=== PATIENT | female | born 1995 | race Caucasian/White ===

== ENCOUNTER 2018-03-31 01:31 | Emergency (ER) | payer BC ==
[2018-03-31] MEDS ORDERED: LIDOCAINE 1% 2 ML VIAL SUBQ ONE (03:31)
[2018-03-31] MEDS ORDERED: cefTRIAXone 250 MG VIAL IM STA (03:31)
[2018-03-31] MEDS ORDERED: AZITHROMYCIN 250 MG TABLET PO STA (03:32)
--- NOTE | 2018-03-31 03:44 | ED Physician Documentation ---
PD HPI FEMALE - Stated complaint Stated Complaint: FEMALE - Chief complaint Chief Complaint: General - History obtained from History obtained from: Patient, Friend - History of Present Illness Timing - onset: How many days ago (4) Timing - duration: Days (4) Timing - details: Gradual onset, Still present Associated symptoms: Other (exposure to std) Contributing factors: Sexually active, Exposed to STD Similar symptoms before: Has not had sx before Recently seen: Not recently seen - Additional information Additional information: 22-year-old female indicates that she has been together with a male having what she thought was consensual monogamous intercourse and she is subsequently discovered that he had been having intercourse with another female and had developed symptoms of dysuria. He indicated to her that he has been tested and treated and indicated to her that she should be tested and treated as well. She is come to the emergency department now for treatment.She denies any specific symptoms. Review of Systems Constitutional: denies: Fever Eyes: denies: Decreased vision Respiratory: denies: Cough GI: denies: Nausea, Vomiting : reports: Vaginal bleeding. denies: Dysuria, Frequency, Discharge Skin: denies: Rash Musculoskeletal: denies: Neck pain, Back pain, Extremity pain PD PAST MEDICAL HISTORY - Past Medical History Past Medical History: No - Past Surgical History Past Surgical History: No - Present Medications Home Medications: Ambulatory Orders Medication Instructions Recorded Confirmed Etonogestrel [Nexplanon] 68 mg SQ 03/31/18 - Allergies Allergies/Adverse Reactions: Allergies Allergy/AdvReac Type Severity Reaction Status Date / Time latex AdvReac Rash Verified 03/31/18 01:52 - Social History Does the pt smoke?: No Smoking Status: Never smoker - Immunizations Immunizations are current?: Yes PD ED PE NORMAL - Vitals Vital signs reviewed: Yes (tachy ) - General General: Alert and oriented X 3, No acute distress, Well developed/nourished - HEENT HEENT: Atraumatic, PERRL, EOMI - Neck Neck: Supple, no meningeal sign - Respiratory Respiratory: No respiratory distress - Female Female : Selling Underwriter present (Alondra), Other (The patient is on her menses, there is minimal cervical friability and there is no significant cervical motion tenderness.) - Derm Derm: Normal color, Warm and dry, No rash - Extremities Extremities: No deformity, No edema Results - Vitals Vitals: Vital Signs - 24 hr 03/31/18 03/31/18 01:48 03:45 Temperature 36.3 C L 36.6 C Heart Rate 118 H 98 Respiratory 18 20 Rate Blood Pressure 139/89 H 126/76 O2 Saturation 100 100 Oxygen O2 Source Room air PD MEDICAL DECISION MAKING - ED course Complexity details: reviewed results, re-evaluated patient, considered differential, d/w patient ED course: 22-year-old female with exposure to STD has no significant findings on physical examination a culture is obtained for GC and chlamydia and she is treated with 250 mg of Rocephin IM and 1 g of azithromycin orally. Departure - Departure Disposition: 01 Home, Self Care Clinical Impression: Exposure to STD Condition: Stable Instructions: ED VD Cervicitis Treated Follow-Up: [facility] [Provider Group] Discharge Date/Time: 03/31/18 03:57
[2018-03-31 03:46] VITALS: BP 126/76
== END 2018-03-31 03:57 | disposition home or self-care (01) ==
LOC: ED 01:31
DX: Z20.2 Contact with and (suspected) exposure to infections with a predominantly sexual mode of transmission (principal)
CPT/HCPCS: 87491; 87591; 96372; 99283; A9270

== ENCOUNTER 2019-04-05 10:19 | Day surgery (SDC) | payer BC ==
[2019-04-05] MEDS ORDERED: KETAMINE 500 MG/10 ML VIAL IVP ONE (10:20)
[2019-04-05] MEDS ORDERED: MIDAZOLAM 2 MG/2 ML VIAL IVP ONE (10:20)
[2019-04-05] MEDS ORDERED: PROPOFOL 200 MG/20 ML VIAL IVP ONE (10:20)
[2019-04-05] MEDS ORDERED: LACTATED RINGERS 1,000 ML IV ONE (10:24)
--- NOTE | 2019-04-05 10:49 | ANESTHESIA ---
Pre-Anesthesia VS, & Labs - Diagnosis imbedded nexplanon implant, right upper arm - Procedure EUA. Removal of nexplanon implant. Height 5 ft Weight (kg) 67.9 kg Body Mass Index 29.2 - Is Patient ?: No Home Medications and Allergies Home Medications: Ambulatory Orders Acetaminophen 325 mg PO Q6H PRN 04/03/19 Ascorbic Acid [Vitamin C] 750 mg PO DAILY 04/03/19 Cholecalciferol (Vitamin D3) [Vitamin D3] 2,500 unit PO DAILY 04/03/19 Ibuprofen [Motrin] 600 mg PO Q6H PRN 04/03/19 Vitamin E 400 unit PO DAILY 04/03/19 Acetaminophen 325 mg PO Q6H PRN 04/03/19 Ascorbic Acid [Vitamin C] 750 mg PO DAILY 04/03/19 Cholecalciferol (Vitamin D3) [Vitamin D3] 2,500 unit PO DAILY 04/03/19 Ibuprofen [Motrin] 600 mg PO Q6H PRN 04/03/19 Vitamin E 400 unit PO DAILY 04/03/19 Allergies/Adverse Reactions: Allergies Allergy/AdvReac Type Severity Reaction Status Date / Time latex AdvReac skin Verified 04/03/19 16:09 dryness Anes History & Medical History - Anesthetic History Anesthesia Complications: reports: No previous complications Family history of Anesthesia Complications: Denies Family history of Malignant Hyperthermia: Denies - Medical History Cardiovascular: reports: None Pulmonary: reports: None Gastrointestinal: reports: None Urinary: reports: None Neuro: reports: None Musculoskeletal: reports: None Endocrine/Autoimmune: reports: None Skin: reports: None Smoking Status: Current every day smoker (marijuana smoke every day. 1ppd x6) Psychosocial: reports: No issues indicated - Surgical History General: Other (remote history of a tumor removal from neck at 6 years of age) Exam Dental: WNL, Other (lower left molar chipped) Mouth Openin Fingerbreadth Neck Mobility: Normal Mallampati classification: I Thyromental Distance: 4-6 cm Respiratory: Lungs clear, Normal breath sounds, No respiratory distress, No accessory muscle use Cardiovascular: Regular rate, Normal S1, Normal S2, No murmurs Abdomen: Normal bowel sounds, Soft, No tenderness, No hepatospenomegaly, No masses Extremities: No clubbing, No cyanosis, No edema, Normal pulses, No tenderness/swelling Neurological: Normal gait, Normal speech, Strength at 5/5 X4 ext, Normal tone, Sensation intact, Cranial nerves 3-12 NL, Reflexes 2+ Mental/Cognitive Status: Alert/Oriented X3, Normal for patient Cognitive Status: Within normal limits Plan Anesthesia Type: MAC Consent for Procedure(s) Verified and Reviewed: Yes Code Status: Attempt Resuscitation ASA classification: 1-Healthy patient Is this case an emergency?: No
[2019-04-05 10:50] LABS: HCG UR QUAL NEGATIVE
[2019-04-05] MEDS ORDERED: BUPIVACAINE 0.25% PF 10 ML VIAL ONE (10:52)
[2019-04-05] MEDS ORDERED: LIDOCAINE 1%-EPI 1:100000 20 ML MDV ONE (10:53)
[2019-04-05] MEDS ORDERED: LIDOCAINE 1%-EPI 1:100000 20 ML MDV SUBQ ONE (11:37)
[2019-04-05] MEDS ORDERED: BUPIVACAINE 0.25% PF 30 ML VIAL SUBQ ONE (11:38)
[2019-04-05] MEDS ORDERED: ONDANSETRON 4 MG/2 ML VIAL IVP PRN (12:04)
[2019-04-05] MEDS ORDERED: oxyCODONE 5 MG TABLET PO PRN (12:04)
--- NOTE | 2019-04-05 12:59 | OPERATIVE REPORT ---
Operative Report - General Procedure Date: 04/05/19 Planned Procedure: Removal of nexplanon contraceptive implant Pre-Op Diagnosis: Malpositioned nexplanon contraceptive device Procedure Performed: Removal of nexplanon contraceptive implant Post Op Diagnosis: Malpositioned nexplanon contraceptive device - Procedure Note Primary Surgeon: Kal Anesthesia Technique: Local, MAC Pathology: None Estimated Blood Loss (mL): 5 Findings: Normal right arm Complications: None - Other Other Information/Narrative: Brought to the OR. SCDs placed. Positioned with right hand over her head. Prepped and draped. Device located with ultrasound. Local injected peripherally circumfrentially around the device. Could barely palpate the proximal end of the device. Area over was incised with a scalpel and explored with a hemostat. Skin incision had to be extended to 2cm in length. Device located and elevated. Capsule incised and the nexplanon was removed intact. Skin closed with a subcuticular 4-0 monocryl and then 2 interrupted sutures of 4-0 monocryl. Steri strips and then a gentle pressure dressing were applied. Tolerated well; no complications.
[2019-04-05 13:18] VITALS: BP 112/69
== END 2019-04-05 10:20 | disposition home or self-care (01) ==
LOC: SDS 10:19
PROVIDERS: ATTEND Obstetrics & Gynecology
PROC: 0JPV0HZ Removal of Contraceptive Device from Upper Extremity Subcutaneous Tissue and Fascia, Open Approach (ICD-10-PCS; principal; 2019-04-05 12:15)
DX: T85.628A Displacement of other specified internal prosthetic devices, implants and grafts, initial encounter (principal); T85.848A Pain due to other internal prosthetic devices, implants and grafts, initial encounter; Y84.8 Other medical procedures as the cause of abnormal reaction of the patient, or of later complication, without mention of misadventure at the time of the procedure; F17.210 Nicotine dependence, cigarettes, uncomplicated
CPT/HCPCS: 11982; 81025; A9270; J7120

== ENCOUNTER 2019-05-19 15:50 | Outpatient (CLI) | payer OTHER ==
[2019-05-19 16:28] LABS: CHOL/HDL RATIO 2.6 (<4.4); CHOLESTEROL 182 mg/dL; HDL CHOLESTEROL 71 mg/dL; LDL CHOLESTEROL,CALCULATED 98 mg/dL; LDL/HDL RATIO 1.4 (<4.4); VLDL CHOLESTEROL 13 mg/dL
[2019-05-20 12:29] LABS: HIV AG/AB 4TH GEN NON-REACTIVE (NON-REACTIVE)
== END 2019-05-19 15:51 | disposition home or self-care (01) ==
LOC: LAB 15:50
PROVIDERS: ATTEND Obstetrics & Gynecology
DX: Z13.21 Encounter for screening for nutritional disorder (principal); Z11.3 Encounter for screening for infections with a predominantly sexual mode of transmission; Z13.220 Encounter for screening for lipoid disorders; Z12.4 Encounter for screening for malignant neoplasm of cervix
CPT/HCPCS: 36415; 80061; 81599; 82306; 83721; 86592; 87350; 87389

== ENCOUNTER 2019-07-09 10:55 | Emergency (ER) | payer OTHER ==
[2019-07-09 11:47] LABS: RAPID STREP SCREEN Negative (Negative)
[2019-07-09] MEDS ORDERED: IPRATROPIUM/ALBUTEROL 3 ML NEB INH STA (12:24)
[2019-07-09] MEDS ORDERED: DOXYCYCLINE 100 MG TABLET PO STA (12:24)
--- NOTE | 2019-07-09 12:33 | ED Physician Documentation ---
PD HPI URI - Stated complaint Stated Complaint: THROAT PX - Chief complaint Chief Complaint: Heent - History obtained from History obtained from: Patient - History of Present Illness Timing - onset: How many days ago (3) Timing duration: Days (3) Timing details: Gradual onset Pain level max: 4 Pain level now: 3 Associated symptoms: Fever (101), Ear pain (Bilateral), Nasal congestion, Rhinorrhea, Sore throat, Dry cough, Dyspnea (Wheezing) Contributing factors: Sick contact (Works as a [employer]). No: Travel, Immunocompromised, Unimmunized Improves by: Rest, Medication (Motrin, Tylenol) Worsened by: Activity Recently seen: Not recently seen Review of Systems Ten Systems: 10 systems reviewed and negative Constitutional: reports: Fever, Chills Eyes: reports: Reviewed and negative Ears: reports: Reviewed and negative Nose: reports: Rhinorrhea / runny nose, Congestion Throat: reports: Reviewed and negative Cardiac: reports: Reviewed and negative Respiratory: reports: Reviewed and negative GI: denies: Nausea, Vomiting, Diarrhea : denies: Now EGA Skin: denies: Rash Musculoskeletal: denies: Neck pain, Back pain Neurologic: denies: Headache Psychiatric: reports: Reviewed and negative Endocrine: reports: Reviewed and negative Immunocompromised: reports: Reviewed and negative PD PAST MEDICAL HISTORY - Past Medical History Past Medical History: Yes Cardiovascular: None Respiratory: None Neuro: None Endocrine/Autoimmune: None GI: None SUPERVISOR POWDERED SUGAR: None : None HEENT: None Psych: None Musculoskeletal: None Derm: None - Past Surgical History Past Surgical History: No General: Other - Present Medications Home Medications: Ambulatory Orders Medication Instructions Recorded Confirmed Acetaminophen 325 mg PO Q6H PRN 04/03/19 04/05/19 Ascorbic Acid [Vitamin C] 750 mg PO DAILY 04/03/19 04/03/19 Cholecalciferol (Vitamin D3) 2,500 unit PO DAILY 04/03/19 04/03/19 [Vitamin D3] Ibuprofen [Motrin] 600 mg PO Q6H PRN 04/03/19 04/05/19 Vitamin E (Dl,Tocopheryl Acet) 400 unit PO DAILY 04/03/19 04/03/19 [Vitamin E] Albuterol Sulf [Ventolin Hfa 1 - 2 puffs INH Q4HR PRN #1 inhaler 07/09/19 Inhaler] Benzonatate [Tessalon Perle] 100 - 200 mg PO TID PRN #30 capsule 07/09/19 Doxycycline Hyclate 100 mg PO BID #20 capsule 07/09/19 - Allergies Allergies/Adverse Reactions: Allergies Allergy/AdvReac Type Severity Reaction Status Date / Time latex AdvReac skin Verified 04/03/19 16:09 dryness - Social History Does the pt smoke?: No Smoking Status: Current every day smoker Does the pt drink ETOH?: Yes Does the pt have substance abuse?: Yes Substance Use and Type: Marijuana - Immunizations Immunizations are current?: Yes - POLST Patient has POLST: No PD ED PE NORMAL - Vitals Vital signs reviewed: Yes - General General: Alert and oriented X 3, No acute distress - HEENT HEENT: PERRL, Moist mucous membranes, Other (Left TM is normal. Right TM is erythematous, dull, bulging with loss of landmarks. Purulent fluid present. Mild posterior pharyngeal erythema without tonsillar exudates. Uvula midline. Normal phonation. No trismus.) - Neck Neck: Supple, no meningeal sign, No adenopathy - Cardiac Cardiac: RRR - Respiratory Respiratory: Other (Wheezing bilaterally, rhonchi in the right lower lobe that do not clear with cough) - Abdomen Abdomen: Soft, Non tender, Non distended - Derm Derm: Warm and dry, No rash - Extremities Extremities: No edema - Neuro Neuro: Alert and oriented X 3 - Psych Psych: Normal mood, Normal affect Results - Vitals Vitals: Vital Signs - 24 hr 07/09/19 07/09/19 07/09/19 11:06 11:48 12:42 Temperature 37.3 C 37.1 C Heart Rate 103 H 75 76 Respiratory 16 18 20 Rate Blood Pressure 125/82 H 117/69 O2 Saturation 98 100 Oxygen O2 Source Room air - Labs Labs: Laboratory Tests 07/09/19 11:15 Group A Strep Rapid Negative PD MEDICAL DECISION MAKING - ED course Complexity details: reviewed results, re-evaluated patient, considered differential, d/w patient ED course: Patient with what appears to be a right acute otitis media and likely right lower lobe pneumonia clinically. We will place on antibiotics. Feels better after nebulizer treatment. Patient is well-appearing, nontoxic. Afebrile. Patient counseled regarding signs and symptoms for which I believe and urgent re-evaluation would be necessary. Patient with good understanding of and agreement to plan and is comfortable going home at this time This document was made in part using voice recognition software. While efforts are made to proofread this document, sound alike and grammatical errors may occur. No hypoxia or respiratory distress Departure - Departure Disposition: 01 Home, Self Care Clinical Impression: Pneumonia Qualifiers: Pneumonia type: due to unspecified organism Laterality: right Lung location: lower lobe of lung Qualified Code(s): J18.9 - Pneumonia, unspecified organism Acute otitis media Qualifiers: Otitis media type: suppurative Laterality: right Recurrence: not specified as recurrent Spontaneous tympanic membrane rupture: without spontaneous rupture Qualified Code(s): H66.001 - Acute suppurative otitis media without spontaneous rupture of ear drum, right ear Condition: Good Instructions: ED Otitis Media Acute Adult, ED Pneumonia Adult Follow-Up: Your,doctor in 1 week [Other] Prescriptions: Albuterol Sulf [Ventolin Hfa Inhaler] 1 - 2 puffs INH Q4HR PRN #1 inhaler PRN Reason: Shortness Of Air/Wheezing Benzonatate [Tessalon Perle] 100 - 200 mg PO TID PRN #30 capsule PRN Reason: Cough Doxycycline Hyclate 100 mg PO BID #20 capsule Comments: Take all antibiotics until gone. Return if you worsen. You can use the albuterol inhaler at home to help with your wheezing as well. Forms: Activity restrictions
[2019-07-09 13:04] VITALS: BP 131/72
== END 2019-07-09 13:18 | disposition home or self-care (01) ==
LOC: ED 10:55
DX: J18.9 Pneumonia, unspecified organism (principal); H66.001 Acute suppurative otitis media without spontaneous rupture of ear drum, right ear; F17.200 Nicotine dependence, unspecified, uncomplicated
CPT/HCPCS: 87070; 87430; 94640; 94664; 99283; 99284; A9270

== ENCOUNTER 2020-06-14 08:00 | Outpatient (CLI) | payer OTHER ==
[2020-06-14 21:52] LABS: TRICHOMONAS VAGINALIS DNA NEGATIVE (NEGATIVE)
[2020-06-15 10:52] LABS: HIV AG/AB 4TH GEN NON-REACTIVE (NON-REACTIVE)
[2020-06-15 12:42] LABS: HEPATITIS B SURFACE ANTIGEN NON-REACTIVE (NON-REACTIVE)
== END 2020-06-14 23:59 | disposition home or self-care (01) ==
LOC: LAB 08:00
PROVIDERS: ATTEND Obstetrics & Gynecology
DX: E55.9 Vitamin D deficiency, unspecified (principal); Z11.3 Encounter for screening for infections with a predominantly sexual mode of transmission
CPT/HCPCS: 36415; 81599; 82306; 86592; 87340; 87389; 87491; 87591; 87661